=== PATIENT | female | born 1965 | race Caucasian/White ===

== ENCOUNTER 2020-09-21 01:55 | Emergency (ER) | payer OTHER ==
[~2020-09-21] VITALS: Ht 172.7 cm; Wt 79.0 kg
[2020-09-21 01:56] VITALS: BP 167/90
--- NOTE | 2020-09-21 02:10 | NUR ---
pt presents with back spasms caused by nerve pain not muscular. pt states she gets these sometimes but not all the time. Pt in gown, resting on gurney.
[2020-09-21] MEDS ORDERED: KETOROLAC 30 MG/1 ML ONE ×2 (02:13→04:39)
[2020-09-21] MEDS ORDERED: ONDANSETRON 2MG/ML, 2ML ONE (02:14)
[2020-09-21] MEDS ORDERED: HYDROmorphone 1 MG/ML, 1ML INJ ONE (02:14)
[2020-09-21] MEDS ORDERED: ONDANSETRON 2MG/ML, 2ML IVPush ONE (02:30)
[2020-09-21] MEDS ORDERED: KETOROLAC 30 MG/1 ML IVPush ONE (02:30)
[2020-09-21] MEDS ORDERED: HYDROmorphone 1 MG/ML, 1ML INJ IV ONE (02:30)
--- NOTE | 2020-09-21 02:52 | NUR ---
pt reports some relief, /. pt is still reporting spasms.
[2020-09-21 03:17] LABS: BASOPHILS % (AUTO) 1 % (0-1); EOSINOPHILS % (AUTO) 10 % (1-7); LYMPHOCYTES % (AUTO) 34 % (22-44); MEAN CORPUSCULAR HEMOGLOBIN 29.4 pg (27.0-34.8); MEAN CORPUSCULAR HGB CONC 34.2 g/dL (32.4-35.8); MEAN PLATELET VOLUME 8.7 fL (7.4-10.4); MONOCYTES % (AUTO) 12 % (2-9); NEUTROPHILS % (AUTO) 42 % (42-75); PLATELET COUNT 276 x10^3/uL (130-400); RED BLOOD COUNT 4.86 x10^6/uL (3.82-5.3); RED CELL DISTRIBUTION WIDTH 13.4 % (9.6-15.2)
[2020-09-21 03:23] LABS: ALANINE AMINOTRANSFERASE 58 U/L (12-78); ALBUMIN 3.2 g/dL (3.4-5.0); ANION GAP 7 mmol/L (5-15); CALCIUM 8.5 mg/dL (8.5-10.1); CHLORIDE 111 mmol/L (98-107)
[2020-09-21 03:26] LABS: ALKALINE PHOSPHATASE 108 U/L (45-117); BILIRUBIN,TOTAL 0.3 mg/dL (0.2-1.0); CREATININE 0.76 mg/dL (0.55-1.02); TOTAL PROTEIN 6.5 g/dL (6.4-8.2)
[2020-09-21 03:55] LABS: MICROSCOPIC NOT IND
--- NOTE | 2020-09-21 04:45 | NUR ---
pt refused vitals
--- NOTE | 2020-09-21 04:45 | NUR ---
Patient given discharge instructions and they have confirmed that they understand the instructions. Patient ambulatory with steady gait.
[2020-09-21] MEDS ORDERED: KETOROLAC 30 MG/1 ML IM ONE (05:00)
== END 2020-09-21 04:50 | disposition home or self-care (01) ==
LOC: ED 04:48
DX: S39.012A Strain of muscle, fascia and tendon of lower back, initial encounter (principal); S29.012A Strain of muscle and tendon of back wall of thorax, initial encounter; M51.36 Other intervertebral disc degeneration, lumbar region; Z90.49 Acquired absence of other specified parts of digestive tract; X58.XXXA Exposure to other specified factors, initial encounter; Y93.89 Activity, other specified; Y92.89 Other specified places as the place of occurrence of the external cause; Y99.8 Other external cause status
CPT/HCPCS: 36415; 72072; 72110; 80053; 81003; 85025; 96372; 96374; 96375; 99284; J1170; J1885; J2405